=== PATIENT | female | born 1950 | race Caucasian/White ===

== ENCOUNTER 2016-08-21 17:52 | Inpatient (IN) | payer OTHER ==
[~2016-08-21] VITALS: Ht 157.5 cm; Wt 108.2 kg
[2016-08-21 20:29] LABS: CHLORIDE 99 mEq/L (99-109); POTASSIUM 3.3 mEq/L (3.7-5.4); SODIUM 134 mEq/L (136-147)
[2016-08-21 20:31] LABS: GLUCOSE 111 mg/dL (70-99)
[2016-08-21 20:32] LABS: ANION GAP 13 MEQ/L (2-14)
[2016-08-21 20:35] LABS: GFR ESTIMATE (CALCULATED) > 59 mL/min/
[2016-08-21 20:36] LABS: UREA NITROGEN (BUN) 11 mg/dL (9-23)
[2016-08-21 20:37] LABS: HEMATOCRIT 37.1 % (36.0-46.0); MCH 20.3 PG (29.0-34.0); MCHC 29.6 G/DL (30.0-36.0); MCV 68.3 FL (83-99); NRBC (%) 0.1 /100 WBC (0-0); PLATELET COUNT 192 K/uL (156-360); RBC DIS.WIDTH-CV 19.7 % (11.8-14.6); RED BLOOD COUNT 5.43 M/uL (3.80-5.20)
[2016-08-21 20:38] LABS: INTER. NORMALIZED RATIO 1.2; PTT 32.2 (25-32)
[2016-08-21] MEDS ORDERED: NORVASC10 MG PO (21:35)
[2016-08-21] MEDS ORDERED: ASPIR 8181 M1 PO (21:36)
[2016-08-21] MEDS ORDERED: CHILDREN'S MOT120 M2 PO (21:37)
[2016-08-22] VITALS (7 sets, daily range): BP systolic 114–140; BP diastolic 66–77
[2016-08-22 07:32] LABS: ALKALINE PHOSPHATASE 55 IU/L (3-129); ANION GAP 12 MEQ/L (2-14); CHLORIDE 100 MEQ/L (99-109); GFR ESTIMATE (CALCULATED) > 59 mL/min/; HEMATOCRIT 31.2 % (36.0-46.0); IRON 12 MCG/DL (35-150); MCH 19.9 PG (29.0-34.0); MCHC 28.8 G/DL (30.0-36.0); POTASSIUM 3.2 MEQ/L (3.7-5.4); RBC DIS.WIDTH-CV 19.5 % (11.8-14.6); RBC DIS.WIDTH-SD 47.8 % (39-53); RED BLOOD COUNT 4.52 M/uL (3.80-5.20); SAMPLE HEMOLYSIS CHECK 0; SAMPLE ICTERIC CHECK 0; SAMPLE LIPEMIA CHECK 0; SODIUM 137 MEQ/L (136-147); TOTAL BILIRUBIN 0.8 MG/DL (0.0-1.0); UREA NITROGEN (BUN) 12 mg/dL (9-23); WHITE BLOOD COUNT 13.7 K/uL (4.1-10.2)
[2016-08-22 07:33] LABS: GLUCOSE 78 mg/dL (70-99)
[2016-08-22 07:41] LABS: ABS NEUTROPHIL COUNT 11.9; ANISOCYTOSIS 1+; ATYPICAL LYMPHOCYTE 0.9 %; BAND NEUTROPHILS 0.9 % (0-8.0); EOSINOPHIL ABS CT 0; MICROCYTOSIS 1+; PLAT.SUFFICIENCY ADEQUATE; PLATELET COUNT 140 K/uL (156-360); POIKILOCYTOSIS 1+; SEG.NEUTROPHILS 85.8 % (46.0-76.0)
[2016-08-22 07:48] LABS: FERRITIN 60 NG/ML (10-291)
[2016-08-23 02:57] VITALS: BP 124/66
[2016-08-23 08:03] LABS: ANION GAP 11 MEQ/L (2-14); CHLORIDE 101 MEQ/L (99-109); GFR ESTIMATE (CALCULATED) > 59 mL/min/; GLUCOSE 84 mg/dL (70-99); POTASSIUM 3.2 MEQ/L (3.7-5.4); SAMPLE HEMOLYSIS CHECK 0; SAMPLE ICTERIC CHECK 0; SAMPLE LIPEMIA CHECK 0; SODIUM 138 MEQ/L (136-147); UREA NITROGEN (BUN) 12 mg/dL (9-23)
[2016-08-23 08:10] LABS: HEMATOCRIT 32.7 % (36.0-46.0); MCH 20.3 PG (29.0-34.0); MCHC 29.4 G/DL (30.0-36.0); MCV 69.3 FL (83-99); PLATELET COUNT 147 K/uL (156-360); RBC DIS.WIDTH-CV 19.3 % (11.8-14.6); RBC DIS.WIDTH-SD 47.4 % (39-53); RED BLOOD COUNT 4.72 M/uL (3.80-5.20); WHITE BLOOD COUNT 10.5 K/uL (4.1-10.2)
[2016-08-23 08:18] LABS: ANISOCYTOSIS 1+; BAND NEUTROPHILS 0.9 % (0-8.0); BURR CELLS 1+; EOSINOPHIL ABS CT 0.4; EOSINOPHILS 3.5 % (0-5.0); HYPOCHROMASIA 1+; INSTRUMENT ABS NEUTROPHIL CT 7.4 K/uL; LYMPHOCYTES 8.8 % (15.0-45.0); METAMYELOCYTES 0.9 %; MICROCYTOSIS 2+; OVALOCYTES 1+; PLAT.SUFFICIENCY ADEQUATE; POIKILOCYTOSIS 1+
[2016-08-23 08:41] VITALS: BP 117/61
[2016-08-23 12:31] VITALS: BP 131/71
[2016-08-23 16:52] VITALS: BP 122/65
[2016-08-23 19:25] VITALS: BP 141/67
[2016-08-23 23:12] VITALS: BP 126/59
[2016-08-24 02:44] VITALS: BP 141/66
[2016-08-24 07:34] VITALS: BP 140/77
[2016-08-24 09:28] LABS: CHLORIDE 104 mEq/L (99-109); POTASSIUM 3.2 mEq/L (3.7-5.4); SODIUM 139 mEq/L (136-147)
[2016-08-24 09:31] LABS: ANION GAP 9 MEQ/L (2-14)
[2016-08-24 09:33] LABS: HEMATOCRIT 34.4 % (36.0-46.0); MCH 20.1 PG (29.0-34.0); MCHC 29.1 G/DL (30.0-36.0); MCV 69.1 FL (83-99); RBC DIS.WIDTH-CV 19.5 % (11.8-14.6); RBC DIS.WIDTH-SD 47.4 % (39-53); RED BLOOD COUNT 4.98 M/uL (3.80-5.20)
[2016-08-24 09:34] LABS: GFR ESTIMATE (CALCULATED) > 59 mL/min/; WHITE BLOOD COUNT 4.5 K/uL (4.1-10.2)
[2016-08-24 09:35] LABS: UREA NITROGEN (BUN) 7 mg/dL (9-23)
[2016-08-24 09:42] LABS: GLUCOSE 152 mg/dL (70-99)
[2016-08-24 10:41] LABS: ABS NEUTROPHIL COUNT 3.9; ANISOCYTOSIS 2+; ATYPICAL LYMPHOCYTE 0.9 %; BAND NEUTROPHILS 1.8 % (0-8.0); EOSINOPHIL ABS CT 0; GIANT PLATELETS 2+; HYPOCHROMASIA 2+; LYMPHOCYTES 5.5 % (15.0-45.0); METAMYELOCYTES 2.7 %; MICROCYTOSIS 2+; MYELOCYTES 0.9 %; OVALOCYTES 2+; PLAT.SUFFICIENCY ADEQUATE; PLATELET COUNT 148 K/uL (156-360); POIKILOCYTOSIS 2+; SEG.NEUTROPHILS 85.5 % (46.0-76.0)
[2016-08-24 11:08] VITALS: BP 138/81
[2016-08-24 16:00] VITALS: BP 135/67
[2016-08-24 21:00] VITALS: BP 132/77
[2016-08-24 23:58] VITALS: BP 142/77
[2016-08-25 09:09] VITALS: BP 144/86
[2016-08-25 09:40] LABS: HEMATOCRIT 35.4 % (36.0-46.0); MCH 20.2 PG (29.0-34.0); MCHC 28.8 G/DL (30.0-36.0); MCV 70.1 FL (83-99); PLATELET COUNT 157 K/uL (156-360); RBC DIS.WIDTH-CV 20.1 % (11.8-14.6); RBC DIS.WIDTH-SD 49.2 % (39-53); RED BLOOD COUNT 5.05 M/uL (3.80-5.20); WHITE BLOOD COUNT 3.2 K/uL (4.1-10.2)
[2016-08-25 10:03] LABS: ANION GAP 9 MEQ/L (2-14); CHLORIDE 104 MEQ/L (99-109); GFR ESTIMATE (CALCULATED) > 59 mL/min/; GLUCOSE 158 mg/dL (70-99); POTASSIUM 3.3 MEQ/L (3.7-5.4); SAMPLE HEMOLYSIS CHECK 0; SAMPLE ICTERIC CHECK 0; SAMPLE LIPEMIA CHECK 0; SODIUM 139 MEQ/L (136-147); UREA NITROGEN (BUN) 5 mg/dL (9-23)
[2016-08-25 10:14] LABS: ABS NEUTROPHIL COUNT 2.3; ANISOCYTOSIS 2+; ATYPICAL LYMPHOCYTE 4.4 %; BAND NEUTROPHILS 1.8 % (0-8.0); BURR CELLS 1+; EOSINOPHIL ABS CT 0.1; EOSINOPHILS 3.5 % (0-5.0); INSTRUMENT ABS NEUTROPHIL CT 1.7 K/uL; METAMYELOCYTES 0.9 %; MICROCYTOSIS 2+; OVALOCYTES 1+; PLAT.SUFFICIENCY ADEQUATE; POIKILOCYTOSIS 2+; POLYCHROMASIA 1+; SEG.NEUTROPHILS 69.3 % (46.0-76.0)
[2016-08-25 10:47] VITALS: BP 134/86
[2016-08-25 16:00] VITALS: BP 149/76
[2016-08-25 23:43] VITALS: BP 133/88
[2016-08-26 07:13] LABS: ANION GAP 9 MEQ/L (2-14); CHLORIDE 105 MEQ/L (99-109); GFR ESTIMATE (CALCULATED) > 59 mL/min/; POTASSIUM 3.7 MEQ/L (3.7-5.4); SAMPLE HEMOLYSIS CHECK 0; SAMPLE ICTERIC CHECK 0; SAMPLE LIPEMIA CHECK 0; SODIUM 140 MEQ/L (136-147); UREA NITROGEN (BUN) 4 mg/dL (9-23)
[2016-08-26 07:15] LABS: GLUCOSE 90 mg/dL (70-99)
[2016-08-26 08:00] VITALS: BP 167/86
[2016-08-26 16:00] VITALS: BP 142/82
[2016-08-26 23:56] VITALS: BP 145/85
[2016-08-27 04:12] VITALS: BP 145/85
[2016-08-27 06:51] VITALS: BP 136/74
[2016-08-27] MEDS ORDERED: CIPRO500 MG/5 M PO (11:58)
[2016-08-27] MEDS ORDERED: FLAGYL500 MG PO (11:58)
== END 2016-08-27 12:52 | disposition home or self-care (01) | DRG 392 ==
LOC: EME 17:52 → 2EAST 23:00 → EDOF 23:00 → 2EAST 08-22 00:05
PROVIDERS: Emergency Medicine; Physician Assistant Surgical; Surgery
PROC: 0W9F30Z Drainage of Abdominal Wall with Drainage Device, Percutaneous Approach (ICD-10-PCS; principal; 2016-08-22)
DX: K57.20 Diverticulitis of large intestine with perforation and abscess without bleeding (principal); E87.1 Hypo-osmolality and hyponatremia; D50.9 Iron deficiency anemia, unspecified; E87.6 Hypokalemia; I10 Essential (primary) hypertension; E66.9 Obesity, unspecified; Z68.41 Body mass index [BMI] 40.0-44.9, adult
CPT/HCPCS: 36415; 49406; 71010; 74020; 74177; 80048; 80053; 82150; 82728; 83540; 83605; 83690; 83735; 84100; 84466; 85025; 85027; 85610; 85730; 86850; 86900; 86901; 87070; 87075; 87076; 87086; 87185; 87205; 99281; 99285; C1769; J0744; J1170; J1885; J2405; J3010; J7030; J7050; J7120; S0030

== ENCOUNTER → 2016-08-21 | Outpatient (CLI) | payer OTHER ==
[~2016-08-21] MED LIST: ASPIR 8181 M1 PO; CHILDREN'S MOT120 M2 PO; NORVASC10 MG PO
== END | disposition home or self-care (01) ==
LOC: RAD 14:58
DX: K57.80 Diverticulitis of intestine, part unspecified, with perforation and abscess without bleeding (principal); K80.20 Calculus of gallbladder without cholecystitis without obstruction; D25.9 Leiomyoma of uterus, unspecified
CPT/HCPCS: 74020; 74177; J2405; J3010

== ENCOUNTER → 2016-10-23 | Outpatient (CLI) | payer OTHER ==
[~2016-10-23] MED LIST changes: +CIPRO500 MG/5 M PO; +FLAGYL500 MG PO; +INDAPAMIDE2.5 MG PO
== END | disposition home or self-care (01) ==
LOC: RAD 14:29
DX: K63.89 Other specified diseases of intestine (principal); K52.9 Noninfective gastroenteritis and colitis, unspecified; K80.20 Calculus of gallbladder without cholecystitis without obstruction; N28.1 Cyst of kidney, acquired; I70.90 Unspecified atherosclerosis; D25.9 Leiomyoma of uterus, unspecified; G31.89 Other specified degenerative diseases of nervous system; R93.5 Abnormal findings on diagnostic imaging of other abdominal regions, including retroperitoneum
CPT/HCPCS: 74177; J3010

== ENCOUNTER → 2016-10-25 | Outpatient (CLI) | payer OTHER | END | disposition home or self-care (01) | LOC: OPR 12:35 → EDSTATUS 13:00 → OPR 13:00 | DX: K57.80 Diverticulitis of intestine, part unspecified, with perforation and abscess without bleeding (principal); I10 Essential (primary) hypertension; R63.4 Abnormal weight loss; D50.9 Iron deficiency anemia, unspecified; J45.909 Unspecified asthma, uncomplicated; E66.01 Morbid (severe) obesity due to excess calories; Z68.41 Body mass index [BMI] 40.0-44.9, adult | CPT/HCPCS: 10030; 87070; 87075; 87076; 87077; 87147; 87185; 87186; 87205; C1729; C1769 ==

== ENCOUNTER 2016-10-28 11:17 | Inpatient (IN) | payer OTHER ==
[~2016-10-28] VITALS: Ht 157.5 cm; Wt 106.0 kg
[2016-10-28 13:13] LABS: CHLORIDE 97 mEq/L (99-109); POTASSIUM 2.8 mEq/L (3.7-5.4); SODIUM 133 mEq/L (136-147)
[2016-10-28 13:15] LABS: GLUCOSE 120 mg/dL (70-99)
[2016-10-28 13:16] LABS: ANION GAP 11 MEQ/L (2-14)
[2016-10-28 13:17] LABS: HEMATOCRIT 36.1 % (36.0-46.0); MCH 21.4 PG (29.0-34.0); MCHC 29.6 G/DL (30.0-36.0); MCV 72.1 FL (83-99); PLATELET COUNT 182 K/uL (156-360); RBC DIS.WIDTH-CV 19.9 % (11.8-14.6); RBC DIS.WIDTH-SD 49.6 % (39-53); RED BLOOD COUNT 5.01 M/uL (3.80-5.20)
[2016-10-28 13:19] LABS: GFR ESTIMATE (CALCULATED) > 59 mL/min/
[2016-10-28 13:20] LABS: UREA NITROGEN (BUN) 8 mg/dL (9-23)
[2016-10-28 14:29] LABS: ABS NEUTROPHIL COUNT 17.2; ANISOCYTOSIS 1+; EOSINOPHIL ABS CT 0; LYMPHOCYTES 3.5 % (15.0-45.0); MICROCYTOSIS 1+; PLAT.SUFFICIENCY ADEQUATE; POIKILOCYTOSIS 1+; SEG.NEUTROPHILS 88.6 % (46.0-76.0)
[2016-10-28 22:30] VITALS: BP 126/70
[2016-10-28 22:32] VITALS: BP 126/70
[2016-10-28 23:00] VITALS: BP 140/71
[2016-10-29] VITALS (19 sets, daily range): BP systolic 98–187; BP diastolic 50–97
[2016-10-29 00:52] LABS: METH RESISTANT S AUREUS PCR NEGATIVE (NEGATIVE)
[2016-10-29 00:53] LABS: PROBE CHECK PASS; SPECIMEN PROCESSING CONTROL PASS
[2016-10-29 05:46] LABS: HEMATOCRIT 33.3 % (36.0-46.0); MCH 22.2 PG (29.0-34.0); MCHC 30.3 G/DL (30.0-36.0); MCV 73.2 FL (83-99); PLATELET COUNT 163 K/uL (156-360); RBC DIS.WIDTH-CV 19.8 % (11.8-14.6); RBC DIS.WIDTH-SD 50.7 % (39-53); RED BLOOD COUNT 4.55 M/uL (3.80-5.20); WHITE BLOOD COUNT 20.2 K/uL (4.1-10.2)
[2016-10-29 06:17] LABS: ANION GAP 11 MEQ/L (2-14); CHLORIDE 102 MEQ/L (99-109); GFR ESTIMATE (CALCULATED) > 59 mL/min/; GLUCOSE 134 mg/dL (70-99); POTASSIUM 3.2 MEQ/L (3.7-5.4); SAMPLE HEMOLYSIS CHECK 0; SAMPLE ICTERIC CHECK 0; SAMPLE LIPEMIA CHECK 0; UREA NITROGEN (BUN) 7 mg/dL (9-23)
[2016-10-29 06:26] LABS: SODIUM 140 MEQ/L (136-147)
[2016-10-30] VITALS: BP 115/58
[2016-10-30 03:33] VITALS: BP 116/65
[2016-10-30 06:56] LABS: HEMATOCRIT 35.2 % (36.0-46.0); MCH 21.4 PG (29.0-34.0); MCV 73.9 FL (83-99); PLATELET COUNT 190 K/uL (156-360); RBC DIS.WIDTH-SD 51.8 % (39-53); RED BLOOD COUNT 4.76 M/uL (3.80-5.20); WHITE BLOOD COUNT 14.9 K/uL (4.1-10.2)
[2016-10-30 07:21] LABS: ANION GAP 9 MEQ/L (2-14); CHLORIDE 103 MEQ/L (99-109); GFR ESTIMATE (CALCULATED) > 59 mL/min/; POTASSIUM 3.3 MEQ/L (3.7-5.4); SAMPLE HEMOLYSIS CHECK 0; SAMPLE ICTERIC CHECK 0; SAMPLE LIPEMIA CHECK 0; SODIUM 140 MEQ/L (136-147); UREA NITROGEN (BUN) 9 mg/dL (9-23)
[2016-10-30 07:22] LABS: GLUCOSE 76 mg/dL (70-99)
[2016-10-30 08:53] VITALS: BP 135/67
[2016-10-30 12:41] VITALS: BP 121/83
[2016-10-30 16:58] VITALS: BP 141/78
[2016-10-30 19:30] VITALS: BP 141/72
[2016-10-31] VITALS: BP 139/67
[2016-10-31 05:36] VITALS: BP 128/67
[2016-10-31 08:34] VITALS: BP 169/79
[2016-10-31 11:43] VITALS: BP 130/78
[2016-10-31 17:02] VITALS: BP 137/80
[2016-10-31 19:26] VITALS: BP 132/73
[2016-11-01] VITALS: BP 139/76
[2016-11-01 05:23] VITALS: BP 142/78
[2016-11-01 06:35] LABS: MCH 21.6 PG (29.0-34.0); MCHC 29.4 G/DL (30.0-36.0); MCV 73.4 FL (83-99); RBC DIS.WIDTH-CV 20.3 % (11.8-14.6); RBC DIS.WIDTH-SD 52.3 % (39-53); RED BLOOD COUNT 4.77 M/uL (3.80-5.20)
[2016-11-01 07:21] LABS: PLAT.SUFFICIENCY ADEQUATE; PLATELET COUNT 179 K/uL (156-360)
[2016-11-01 08:00] VITALS: BP 148/82
[2016-11-01 11:36] VITALS: BP 136/75
[2016-11-01 15:15] VITALS: BP 134/77
[2016-11-01 19:48] VITALS: BP 135/77
[2016-11-02 00:30] VITALS: BP 132/83
[2016-11-02 05:03] VITALS: BP 132/72
[2016-11-02 05:11] LABS: POTASSIUM 3.2 mEq/L (3.7-5.4); SODIUM 143 mEq/L (136-147)
[2016-11-02 05:12] LABS: CHLORIDE 110 mEq/L (99-109)
[2016-11-02 05:14] LABS: ANION GAP 9 MEQ/L (2-14); GLUCOSE 99 mg/dL (70-99)
[2016-11-02 05:17] LABS: GFR ESTIMATE (CALCULATED) > 59 mL/min/
[2016-11-02 05:18] LABS: UREA NITROGEN (BUN) 3 mg/dL (9-23)
[2016-11-02 07:25] VITALS: BP 128/81
[2016-11-02 12:25] VITALS: BP 112/67
[2016-11-02 21:57] VITALS: BP 167/93
[2016-11-03 01:02] VITALS: BP 143/80
[2016-11-03 04:08] VITALS: BP 141/88
[2016-11-03 08:00] VITALS: BP 151/72
[2016-11-03] MEDS ORDERED: ENDOCET 5-3251 EACH PO (09:53)
[2016-11-03] MEDS ORDERED: ONDANSETRON4 MG/2 ML IV (09:54)
[2016-11-03] MEDS ORDERED: TYLENOL REGULA325 MG PO (09:54)
[2016-11-03] MEDS ORDERED: FAMOTIDINE20 MG PO (09:54)
[2016-11-03 10:38] LABS: HEMATOCRIT 33.5 % (36.0-46.0); MCHC 29.6 G/DL (30.0-36.0); MCV 74.6 FL (83-99); RBC DIS.WIDTH-CV 20.8 % (11.8-14.6); RBC DIS.WIDTH-SD 53.9 % (39-53); RED BLOOD COUNT 4.49 M/uL (3.80-5.20); WHITE BLOOD COUNT 5.7 K/uL (4.1-10.2)
[2016-11-03 10:49] LABS: ANION GAP 8 MEQ/L (2-14); CHLORIDE 107 MEQ/L (99-109); GFR ESTIMATE (CALCULATED) > 59 mL/min/; POTASSIUM 3.2 MEQ/L (3.7-5.4); SAMPLE HEMOLYSIS CHECK 0; SAMPLE ICTERIC CHECK 0; SAMPLE LIPEMIA CHECK 0; SODIUM 140 MEQ/L (136-147); UREA NITROGEN (BUN) 4 mg/dL (9-23)
[2016-11-03 10:59] LABS: GLUCOSE 186 mg/dL (70-99)
[2016-11-03 12:32] VITALS: BP 131/76
[2016-11-03 14:22] LABS: PLATELET COUNT 218 K/uL (156-360)
== END 2016-11-03 13:42 | DRG 571 ==
LOC: EME → EDBD 11:17 → EDOF 15:20 → 4EAST 15:20 → EDOF 19:46 → 4WEST 22:22 → 4EAST 10-30 03:20
PROVIDERS: Emergency Medicine; Physician Assistant Surgical; Surgery
DX: L03.311 Cellulitis of abdominal wall (principal); K63.2 Fistula of intestine; K57.20 Diverticulitis of large intestine with perforation and abscess without bleeding; Z68.41 Body mass index [BMI] 40.0-44.9, adult; J45.909 Unspecified asthma, uncomplicated; I10 Essential (primary) hypertension; E66.01 Morbid (severe) obesity due to excess calories; L02.211 Cutaneous abscess of abdominal wall; B95.61 Methicillin susceptible Staphylococcus aureus infection as the cause of diseases classified elsewhere; Z88.5 Allergy status to narcotic agent
CPT/HCPCS: 10030; 74177; 80048; 82040; 85025; 85027; 87070; 87075; 87076; 87077; 87147; 87185; 87186; 87205; 87641; 94799; 97530 GP; 99281; 99284; A6260; C1729; C1769; J0330; J1100; J1644; J2270; J2405; J2543; J3010; J3480; J7030; J7050; J7120

== ENCOUNTER 2016-11-12 17:24 | Inpatient (IN) | payer OTHER ==
[~2016-11-12] VITALS: Ht 157.5 cm; Wt 100.3 kg
[~2016-11-12 17:24] MED LIST changes: +ENDOCET 5-3251 EACH PO; +FAMOTIDINE20 MG PO; +ONDANSETRON4 MG/2 ML IV; +TYLENOL REGULA325 MG PO
[2016-11-12 18:52] LABS: BASOPHIL COUNT 0.1 K/uL (0-0.1); EOSINOPHIL (%) 0.1 % (0-5); HEMATOCRIT 33.4 % (36.0-46.0); IMMATURE GRANULOCYTE (%) 1.1 % (0.0-0.7); IMMATURE GRANULOCYTE COUNT 0.2 K/uL; INSTRUMENT ABS NEUTROPHIL CT 14.9 K/uL; LYMPHOCYTE COUNT 1.7 K/uL (1.0-2.8); MCH 21.7 PG (29.0-34.0); MCHC 30.2 G/DL (30.0-36.0); MCV 71.8 FL (83-99); MEAN PLAT.VOLUME 11.9 uM^3 (9.5-12.4); MONOCYTE (%) 6.2 % (3-12); MONOCYTE COUNT 1.1 K/uL (0-0.8); NEUTROPHIL (%) 82.8 % (45-76); NEUTROPHIL COUNT 14.9 K/uL (1.8-6.4); PLATELET COUNT 209 K/uL (156-360); RBC DIS.WIDTH-CV 20.8 % (11.8-14.6); RBC DIS.WIDTH-SD 51.9 % (39-53); RED BLOOD COUNT 4.65 M/uL (3.80-5.20); WHITE BLOOD COUNT 17.9 K/uL (4.1-10.2)
[2016-11-12 18:54] LABS: CHLORIDE 96 mEq/L (99-109); POTASSIUM 3.4 mEq/L (3.7-5.4); SODIUM 134 mEq/L (136-147)
[2016-11-12 18:56] LABS: GLUCOSE 134 mg/dL (70-99)
[2016-11-12 18:57] LABS: ANION GAP 11 MEQ/L (2-14)
[2016-11-12 18:58] LABS: TOTAL BILIRUBIN 0.8 mg/dL (0.0-1.0)
[2016-11-12 18:59] LABS: ALKALINE PHOSPHATASE 98 IU/L (3-129)
[2016-11-12 19:00] LABS: GFR ESTIMATE (CALCULATED) > 59 mL/min/
[2016-11-12 19:01] LABS: UREA NITROGEN (BUN) 11 mg/dL (9-23)
[2016-11-12] MEDS ORDERED: DULCOLAX10 MG PR (20:49)
[2016-11-12] MEDS ORDERED: MILK OF MAGN PO (20:50)
[2016-11-12] MEDS ORDERED: FEOSOL325 MG PO (20:51)
[2016-11-12] MEDS ORDERED: FLORASTOR250 MG PO (20:52)
[2016-11-12] MEDS ORDERED: CHILDREN'S160 MG/23 PO (20:55)
[2016-11-12] MEDS ORDERED: POTASSIUM CHLO20 MEQ PO (20:56)
[2016-11-12] MEDS ORDERED: FAMOTIDINE20 MG PO (20:58)
[2016-11-12] MEDS ORDERED: OXYCODONE H5 MG/5 ML PO (21:00)
[2016-11-12] MEDS ORDERED: MIRALAX255 GM PO (21:01)
[2016-11-12] MEDS ORDERED: ZOFRAN4 MG PO (21:02)
[2016-11-12 23:35] LABS: INTER. NORMALIZED RATIO 1.2; PROTHROMBIN TIME 11.9 (9.2-11.2); PTT 31.8 (25-32)
[2016-11-12 23:51] VITALS: BP 133/66
[2016-11-13 01:11] LABS: POINT-OF-CARE METER ID UU14162508
[2016-11-13 04:28] VITALS: BP 119/58
[2016-11-13 06:30] LABS: POINT-OF-CARE METER ID UU14162508
[2016-11-13 07:07] LABS: EOSINOPHIL (%) 0.3 % (0-5); HEMATOCRIT 28.7 % (36.0-46.0); IMMATURE GRANULOCYTE (%) 1.4 % (0.0-0.7); IMMATURE GRANULOCYTE COUNT 0.2 K/uL; INSTRUMENT ABS NEUTROPHIL CT 9.3 K/uL; LYMPHOCYTE COUNT 1.3 K/uL (1.0-2.8); MCH 22.8 PG (29.0-34.0); MCV 73.4 FL (83-99); MONOCYTE (%) 7.4 % (3-12); MONOCYTE COUNT 0.9 K/uL (0-0.8); NEUTROPHIL (%) 79.5 % (45-76); NEUTROPHIL COUNT 9.3 K/uL (1.8-6.4); PLATELET COUNT 161 K/uL (156-360); RBC DIS.WIDTH-CV 20.8 % (11.8-14.6); RBC DIS.WIDTH-SD 53.4 % (39-53); RED BLOOD COUNT 3.91 M/uL (3.80-5.20); WHITE BLOOD COUNT 11.8 K/uL (4.1-10.2)
[2016-11-13 07:18] LABS: ANION GAP 8 MEQ/L (2-14); CHLORIDE 102 MEQ/L (99-109); GFR ESTIMATE (CALCULATED) > 59 mL/min/; GLUCOSE 109 mg/dL (70-99); SAMPLE HEMOLYSIS CHECK 0; SAMPLE ICTERIC CHECK 0; SAMPLE LIPEMIA CHECK 0; SODIUM 138 MEQ/L (136-147); UREA NITROGEN (BUN) 9 mg/dL (9-23)
[2016-11-13 07:35] VITALS: BP 132/68
[2016-11-13 12:15] VITALS: BP 130/66
[2016-11-13 15:30] VITALS: BP 118/66
[2016-11-13 17:45] LABS: POINT-OF-CARE METER ID UU14162508
[2016-11-13 19:19] VITALS: BP 133/67
[2016-11-13 23:39] VITALS: BP 139/66
[2016-11-14 04:28] VITALS: BP 128/65
[2016-11-14 07:42] VITALS: BP 121/68
[2016-11-14 12:05] VITALS: BP 134/92
[2016-11-14 13:56] LABS: ANION GAP 13 MEQ/L (2-14); CHLORIDE 102 MEQ/L (99-109); POTASSIUM 2.8 MEQ/L (3.7-5.4); SAMPLE HEMOLYSIS CHECK 0; SAMPLE ICTERIC CHECK 0; SAMPLE LIPEMIA CHECK 0; SODIUM 138 MEQ/L (136-147)
[2016-11-14 14:00] LABS: EOSINOPHIL (%) 1.7 % (0-5); EOSINOPHIL COUNT 0.1 K/uL (0-0.3); HEMATOCRIT 33.1 % (36.0-46.0); IMMATURE GRANULOCYTE (%) 1.3 % (0.0-0.7); IMMATURE GRANULOCYTE COUNT 0.1 K/uL; INSTRUMENT ABS NEUTROPHIL CT 4.3 K/uL; LYMPHOCYTE COUNT 1.2 K/uL (1.0-2.8); MCH 22.4 PG (29.0-34.0); MCHC 30.2 G/DL (30.0-36.0); MCV 74.2 FL (83-99); MONOCYTE COUNT 0.4 K/uL (0-0.8); NEUTROPHIL COUNT 4.3 K/uL (1.8-6.4); PLATELET COUNT 163 K/uL (156-360); RBC DIS.WIDTH-CV 20.6 % (11.8-14.6); RED BLOOD COUNT 4.46 M/uL (3.80-5.20)
[2016-11-14 14:01] LABS: GFR ESTIMATE (CALCULATED) > 59 mL/min/; GLUCOSE 121 mg/dL (70-99); UREA NITROGEN (BUN) 8 mg/dL (9-23)
[2016-11-14 15:16] VITALS: BP 117/67
[2016-11-14 16:21] LABS: MAGNESIUM 2.2 mg/dl (1.3-2.7)
[2016-11-14 20:00] VITALS: BP 129/70
[2016-11-15 01:07] VITALS: BP 127/69
[2016-11-15 08:00] VITALS: BP 135/86
[2016-11-15 08:21] LABS: EOSINOPHIL COUNT 0.1 K/uL (0-0.3); HEMATOCRIT 32.5 % (36.0-46.0); IMMATURE GRANULOCYTE (%) 1.7 % (0.0-0.7); IMMATURE GRANULOCYTE COUNT 0.1 K/uL; INSTRUMENT ABS NEUTROPHIL CT 2.3 K/uL; LYMPHOCYTE COUNT 1.2 K/uL (1.0-2.8); MCH 22.4 PG (29.0-34.0); MCHC 30.2 G/DL (30.0-36.0); MCV 74.4 FL (83-99); MONOCYTE (%) 7.5 % (3-12); MONOCYTE COUNT 0.3 K/uL (0-0.8); NEUTROPHIL (%) 57.5 % (45-76); NEUTROPHIL COUNT 2.3 K/uL (1.8-6.4); PLATELET COUNT 175 K/uL (156-360); RBC DIS.WIDTH-CV 20.7 % (11.8-14.6); RBC DIS.WIDTH-SD 54.3 % (39-53); RED BLOOD COUNT 4.37 M/uL (3.80-5.20)
[2016-11-15 08:32] LABS: ANION GAP 11 MEQ/L (2-14); CHLORIDE 107 MEQ/L (99-109); GFR ESTIMATE (CALCULATED) > 59 mL/min/; GLUCOSE 88 mg/dL (70-99); POTASSIUM 3.7 MEQ/L (3.7-5.4); SAMPLE HEMOLYSIS CHECK 0; SAMPLE ICTERIC CHECK 0; SAMPLE LIPEMIA CHECK 0; SODIUM 142 MEQ/L (136-147); UREA NITROGEN (BUN) 6 mg/dL (9-23)
[2016-11-15 11:12] VITALS: BP 127/84
[2016-11-15 15:35] VITALS: BP 128/84
[2016-11-16] VITALS (7 sets, daily range): BP systolic 122–139; BP diastolic 67–73
[2016-11-16 08:04] LABS: EOSINOPHIL (%) 3.2 % (0-5); EOSINOPHIL COUNT 0.1 K/uL (0-0.3); HEMATOCRIT 32.9 % (36.0-46.0); IMMATURE GRANULOCYTE (%) 2.2 % (0.0-0.7); IMMATURE GRANULOCYTE COUNT 0.1 K/uL; LYMPHOCYTE COUNT 1.1 K/uL (1.0-2.8); MCH 22.1 PG (29.0-34.0); MCHC 29.8 G/DL (30.0-36.0); MCV 74.1 FL (83-99); MONOCYTE (%) 8.9 % (3-12); MONOCYTE COUNT 0.3 K/uL (0-0.8); NEUTROPHIL (%) 54.6 % (45-76); PLATELET COUNT 175 K/uL (156-360); RBC DIS.WIDTH-CV 20.5 % (11.8-14.6); RBC DIS.WIDTH-SD 53.2 % (39-53); RED BLOOD COUNT 4.44 M/uL (3.80-5.20); WHITE BLOOD COUNT 3.7 K/uL (4.1-10.2)
[2016-11-16 08:23] LABS: ANION GAP 11 MEQ/L (2-14); CHLORIDE 105 MEQ/L (99-109); GFR ESTIMATE (CALCULATED) > 59 mL/min/; GLUCOSE 91 mg/dL (70-99); MAGNESIUM 2.1 mg/dl (1.3-2.7); POTASSIUM 3.3 MEQ/L (3.7-5.4); SAMPLE HEMOLYSIS CHECK 0; SAMPLE ICTERIC CHECK 0; SAMPLE LIPEMIA CHECK 0; SODIUM 142 MEQ/L (136-147); UREA NITROGEN (BUN) 5 mg/dL (9-23)
[2016-11-17 03:51] VITALS: BP 138/75
[2016-11-17 06:23] VITALS: BP 142/78
[2016-11-17 06:47] LABS: ANION GAP 10 MEQ/L (2-14); CHLORIDE 107 MEQ/L (99-109); GFR ESTIMATE (CALCULATED) > 59 mL/min/; GLUCOSE 87 mg/dL (70-99); MAGNESIUM 2.2 mg/dl (1.3-2.7); POTASSIUM 4.2 MEQ/L (3.7-5.4); SAMPLE HEMOLYSIS CHECK 0; SAMPLE ICTERIC CHECK 0; SAMPLE LIPEMIA CHECK 0; SODIUM 142 MEQ/L (136-147); UREA NITROGEN (BUN) 5 mg/dL (9-23)
[2016-11-17 11:35] VITALS: BP 130/71
== END 2016-11-17 13:27 | DRG 872 ==
LOC: EME 17:24 → 2EAST 22:22 → EDOF 22:22 → 2EAST 23:41
PROVIDERS: Emergency Medicine; Hospitalist; Internal Medicine
DX: A41.9 Sepsis, unspecified organism (principal); T81.30XA Disruption of wound, unspecified, initial encounter; E87.1 Hypo-osmolality and hyponatremia; E66.01 Morbid (severe) obesity due to excess calories; N28.1 Cyst of kidney, acquired; K57.20 Diverticulitis of large intestine with perforation and abscess without bleeding; Z68.41 Body mass index [BMI] 40.0-44.9, adult; I10 Essential (primary) hypertension; R73.03 Prediabetes; E87.6 Hypokalemia; J45.909 Unspecified asthma, uncomplicated; D64.9 Anemia, unspecified; K80.20 Calculus of gallbladder without cholecystitis without obstruction; Z93.3 Colostomy status; Z83.3 Family history of diabetes mellitus
CPT/HCPCS: 71010; 72192; 74177; 80048; 80053; 81003; 82948; 83605; 83735; 85025; 85025 91; 85610; 85730; 86900; 86901; 87040; 93005; 99281; 99285; A6260; J1450; J1644; J2543; J3010; J3260; J3370; J3480; J7030; J7050

== ENCOUNTER 2016-12-01 10:06 | Inpatient (IN) | payer OTHER ==
[~2016-12-01] VITALS: Ht 157.5 cm; Wt 103.0 kg
[~2016-12-01 10:06] MED LIST changes: +CHILDREN'S160 MG/23 PO; +DULCOLAX10 MG PR; +FEOSOL325 MG PO; +FLORASTOR250 MG PO; +MILK OF MAGN PO; +MIRALAX255 GM PO; +OXYCODONE H5 MG/5 ML PO; +POTASSIUM CHLO20 MEQ PO; +ZOFRAN4 MG PO
[2016-12-01 12:33] LABS: HEMATOCRIT 34.9 % (36.0-46.0); MCH 22.4 PG (29.0-34.0); MCHC 29.8 G/DL (30.0-36.0); MCV 75.1 FL (83-99); MEAN PLAT.VOLUME 11.7 uM^3 (9.5-12.4); PLATELET COUNT 209 K/uL (156-360); RBC DIS.WIDTH-CV 22.3 % (11.8-14.6); RBC DIS.WIDTH-SD 58.6 % (39-53); RED BLOOD COUNT 4.65 M/uL (3.80-5.20); WHITE BLOOD COUNT 10.7 K/uL (4.1-10.2)
[2016-12-01 12:42] LABS: CHLORIDE 99 mEq/L (99-109); POTASSIUM 2.5 mEq/L (3.7-5.4); SODIUM 139 mEq/L (136-147)
[2016-12-01 12:44] LABS: GLUCOSE 88 mg/dL (70-99)
[2016-12-01 12:46] LABS: ANION GAP 15 MEQ/L (2-14); TOTAL BILIRUBIN 0.6 mg/dL (0.0-1.0)
[2016-12-01 12:48] LABS: ALKALINE PHOSPHATASE 89 IU/L (3-129); GFR ESTIMATE (CALCULATED) > 59 mL/min/
[2016-12-01 12:49] LABS: UREA NITROGEN (BUN) 10 mg/dL (9-23)
[2016-12-01 12:52] LABS: LIPASE 19 U/L (1.0-51.0)
[2016-12-01] MEDS ORDERED: KLOR-CON M2020 MEQ PO ×2 (16:01→16:05)
[2016-12-01] MEDS ORDERED: PROMETHAZINE HC25 M1 PO (16:05)
[2016-12-01 18:58] LABS: ADD MIUA? NO; BILIRUBIN NEGATIVE; BLOOD NEGATIVE; COLOR YELLOW ((YELLOW)); GLUCOSE (STRIP) NEGATIVE; KETONES 20; LEUKOCYTES NEGATIVE; NITRITE NEGATIVE; PROTEIN (STRIP) NEGATIVE; UCUL ADDED? NO; UROBILINOGEN 0.2 MG/DL (0.2-1.0)
[2016-12-01 19:45] LABS: SPECIFIC GRAVITY 1.076 (1.000-1.030)
[2016-12-02] VITALS (13 sets, daily range): BP systolic 104–140; BP diastolic 59–86
[2016-12-02 16:15] LABS: POINT-OF-CARE METER ID UU13113675
[2016-12-02 19:23] LABS: METH RESISTANT S AUREUS PCR NEGATIVE (NEGATIVE)
[2016-12-02 19:40] LABS: ANION GAP 16 MEQ/L (2-14); CHLORIDE 105 MEQ/L (99-109); GFR ESTIMATE (CALCULATED) > 59 mL/min/; MAGNESIUM 1.1 mg/dl (1.3-2.7); SAMPLE HEMOLYSIS CHECK 0; SAMPLE ICTERIC CHECK 0; SAMPLE LIPEMIA CHECK 0; SODIUM 136 MEQ/L (136-147); UREA NITROGEN (BUN) 10 mg/dL (9-23)
[2016-12-02 19:42] LABS: GLUCOSE 119 mg/dL (70-99)
[2016-12-02 19:54] LABS: PROBE CHECK PASS; SPECIMEN PROCESSING CONTROL PASS
[2016-12-02 23:33] LABS: PLATELET COUNT 246 K/uL (156-360)
[2016-12-02 23:45] LABS: HEMATOCRIT 35.6 % (36.0-46.0); MCH 22.7 PG (29.0-34.0); MCHC 29.5 G/DL (30.0-36.0); MCV 76.9 FL (83-99); RBC DIS.WIDTH-CV 22.3 % (11.8-14.6); RBC DIS.WIDTH-SD 61.3 % (39-53); RED BLOOD COUNT 4.63 M/uL (3.80-5.20); WHITE BLOOD COUNT 34.5 K/uL (4.1-10.2)
[2016-12-03] VITALS (16 sets, daily range): BP systolic 106–144; BP diastolic 56–72
[2016-12-03 00:09] LABS: INTER. NORMALIZED RATIO 1.4; PROTHROMBIN TIME 15.7 SEC (10.2-12.9)
[2016-12-03 00:12] LABS: PTT 22.5 SEC (25-37)
[2016-12-03 05:46] LABS: ANION GAP 10 MEQ/L (2-14); CHLORIDE 104 MEQ/L (99-109); GFR ESTIMATE (CALCULATED) > 59 mL/min/; GLUCOSE 130 mg/dL (70-99); MAGNESIUM 1.5 mg/dl (1.3-2.7); POTASSIUM 3.5 MEQ/L (3.7-5.4); SAMPLE HEMOLYSIS CHECK 0; SAMPLE ICTERIC CHECK 0; SAMPLE LIPEMIA CHECK 0; SODIUM 134 MEQ/L (136-147); UREA NITROGEN (BUN) 14 mg/dL (9-23)
[2016-12-03 06:23] LABS: HEMATOCRIT 28.7 % (36.0-46.0); MCH 22.5 PG (29.0-34.0); MCHC 28.9 G/DL (30.0-36.0); MCV 77.8 FL (83-99); RBC DIS.WIDTH-SD 61.5 % (39-53); WHITE BLOOD COUNT 21.5 K/uL (4.1-10.2)
[2016-12-03 06:24] LABS: RED BLOOD COUNT 3.69 M/uL (3.80-5.20)
[2016-12-03 06:27] LABS: PLAT.SUFFICIENCY ADEQUATE
[2016-12-03 06:31] LABS: PLATELET COUNT 170 K/uL (156-360)
[2016-12-04] VITALS: BP 132/78
[2016-12-04 04:00] VITALS: BP 141/68
[2016-12-04 06:00] LABS: HEMATOCRIT 27.1 % (36.0-46.0); MCH 22.4 PG (29.0-34.0); MCHC 28.4 G/DL (30.0-36.0); PLATELET COUNT 166 K/uL (156-360); RBC DIS.WIDTH-CV 22.2 % (11.8-14.6); RBC DIS.WIDTH-SD 63.1 % (39-53); RED BLOOD COUNT 3.43 M/uL (3.80-5.20); WHITE BLOOD COUNT 19.4 K/uL (4.1-10.2)
[2016-12-04 06:28] LABS: ANION GAP 8 MEQ/L (2-14); CHLORIDE 111 MEQ/L (99-109); GFR ESTIMATE (CALCULATED) > 59 mL/min/; GLUCOSE 108 mg/dL (70-99); SAMPLE HEMOLYSIS CHECK 1; SAMPLE ICTERIC CHECK 0; SAMPLE LIPEMIA CHECK 0; SODIUM 136 MEQ/L (136-147); UREA NITROGEN (BUN) 16 mg/dL (9-23)
[2016-12-04 06:32] LABS: MAGNESIUM 2.4 mg/dl (1.3-2.7); POTASSIUM 5.1 MEQ/L (3.7-5.4)
[2016-12-04 07:50] VITALS: BP 124/69
[2016-12-04 11:30] VITALS: BP 122/63
[2016-12-04 16:29] VITALS: BP 112/56
[2016-12-04 19:30] VITALS: BP 114/59
[2016-12-05] VITALS (12 sets, daily range): BP systolic 130–154; BP diastolic 60–88
[2016-12-05 05:19] LABS: SODIUM 139 mEq/L (136-147)
[2016-12-05 05:20] LABS: CHLORIDE 111 mEq/L (99-109); MAGNESIUM 2.1 mg/dL (1.3-2.7); POTASSIUM 3.8 mEq/L (3.7-5.4)
[2016-12-05 05:21] LABS: GLUCOSE 136 mg/dL (70-99)
[2016-12-05 05:23] LABS: ANION GAP 9 MEQ/L (2-14)
[2016-12-05 05:25] LABS: GFR ESTIMATE (CALCULATED) > 59 mL/min/
[2016-12-05 05:26] LABS: UREA NITROGEN (BUN) 14 mg/dL (9-23)
[2016-12-05 05:45] LABS: HEMATOCRIT 23.5 % (36.0-46.0); MCH 22.5 PG (29.0-34.0); MCHC 29.4 G/DL (30.0-36.0); MCV 76.8 FL (83-99); NRBC (%) 0.2 /100 WBC (0-0); RBC DIS.WIDTH-SD 61.1 % (39-53); RED BLOOD COUNT 3.06 M/uL (3.80-5.20); WHITE BLOOD COUNT 11.7 K/uL (4.1-10.2)
[2016-12-05 08:02] LABS: PLAT.SUFFICIENCY DECREASED
[2016-12-05 08:18] LABS: PLATELET COUNT 114 K/uL (156-360)
[2016-12-06] VITALS (7 sets, daily range): BP systolic 131–170; BP diastolic 68–93
[2016-12-06 05:12] LABS: HEMATOCRIT 31.7 % (36.0-46.0); MCH 24.4 PG (29.0-34.0); MCHC 30.9 G/DL (30.0-36.0); MCV 79.1 FL (83-99); NRBC (%) 0.2 /100 WBC (0-0); PLATELET COUNT 109 K/uL (156-360); RBC DIS.WIDTH-CV 21.9 % (11.8-14.6); RBC DIS.WIDTH-SD 62.6 % (39-53); RED BLOOD COUNT 4.01 M/uL (3.80-5.20); WHITE BLOOD COUNT 10.6 K/uL (4.1-10.2)
[2016-12-06 05:19] LABS: CHLORIDE 108 mEq/L (99-109); POTASSIUM 3.1 mEq/L (3.7-5.4); SODIUM 141 mEq/L (136-147)
[2016-12-06 05:21] LABS: GLUCOSE 134 mg/dL (70-99)
[2016-12-06 05:22] LABS: ANION GAP 8 MEQ/L (2-14)
[2016-12-06 05:24] LABS: GFR ESTIMATE (CALCULATED) > 59 mL/min/
[2016-12-06 05:25] LABS: UREA NITROGEN (BUN) 13 mg/dL (9-23)
[2016-12-06 05:30] LABS: MAGNESIUM 1.6 mg/dL (1.3-2.7)
[2016-12-07 04:20] VITALS: BP 144/86
[2016-12-07 06:15] LABS: ANION GAP 8 MEQ/L (2-14); CHLORIDE 103 MEQ/L (99-109); GFR ESTIMATE (CALCULATED) > 59 mL/min/; GLUCOSE 135 mg/dL (70-99); MAGNESIUM 1.7 mg/dl (1.3-2.7); POTASSIUM 3.5 MEQ/L (3.7-5.4); SAMPLE HEMOLYSIS CHECK 1; SAMPLE ICTERIC CHECK 0; SAMPLE LIPEMIA CHECK 0; SODIUM 139 MEQ/L (136-147); UREA NITROGEN (BUN) 13 mg/dL (9-23)
[2016-12-07 08:30] VITALS: BP 135/76
[2016-12-07 12:05] VITALS: BP 134/74
[2016-12-07 16:47] VITALS: BP 135/91
[2016-12-07 19:41] VITALS: BP 133/84
[2016-12-08 00:57] VITALS: BP 133/77
[2016-12-08 04:41] VITALS: BP 131/70
[2016-12-08 05:59] LABS: ANION GAP 9 MEQ/L (2-14); CHLORIDE 100 MEQ/L (99-109); GFR ESTIMATE (CALCULATED) > 59 mL/min/; GLUCOSE 112 mg/dL (70-99); MAGNESIUM 1.5 mg/dl (1.3-2.7); POTASSIUM 3.1 MEQ/L (3.7-5.4); SAMPLE HEMOLYSIS CHECK 0; SAMPLE ICTERIC CHECK 0; SAMPLE LIPEMIA CHECK 0; SODIUM 138 MEQ/L (136-147); UREA NITROGEN (BUN) 12 mg/dL (9-23)
[2016-12-08 07:22] VITALS: BP 131/76
[2016-12-08 09:15] LABS: HEMATOCRIT 31.2 % (36.0-46.0); MCH 24.9 PG (29.0-34.0); MCHC 32.1 G/DL (30.0-36.0); MCV 77.8 FL (83-99); RBC DIS.WIDTH-CV 22.8 % (11.8-14.6); RBC DIS.WIDTH-SD 63.5 % (39-53); RED BLOOD COUNT 4.01 M/uL (3.80-5.20); WHITE BLOOD COUNT 14.6 K/uL (4.1-10.2)
[2016-12-08 09:59] LABS: PLAT.SUFFICIENCY DECREASED; PLATELET COUNT 100 K/uL (156-360)
[2016-12-08 12:11] VITALS: BP 129/74
[2016-12-08 15:46] VITALS: BP 135/75
[2016-12-08 19:13] VITALS: BP 138/67
[2016-12-09] VITALS: BP 136/68
[2016-12-09 04:00] VITALS: BP 134/72
[2016-12-09 05:32] LABS: ANION GAP 9 MEQ/L (2-14); CHLORIDE 101 MEQ/L (99-109); GFR ESTIMATE (CALCULATED) > 59 mL/min/; GLUCOSE 104 mg/dL (70-99); MAGNESIUM 1.6 mg/dl (1.3-2.7); POTASSIUM 3.2 MEQ/L (3.7-5.4); SAMPLE HEMOLYSIS CHECK 0; SAMPLE ICTERIC CHECK 0; SAMPLE LIPEMIA CHECK 0; SODIUM 137 MEQ/L (136-147); UREA NITROGEN (BUN) 13 mg/dL (9-23)
[2016-12-09 08:56] LABS: DIRECT BILIRUBIN 0.2 mg/dL (0.0-0.3); TOTAL BILIRUBIN 0.7 MG/DL (0.0-1.0)
[2016-12-09 09:02] LABS: ALKALINE PHOSPHATASE 116 IU/L (3-129)
[2016-12-09 09:08] LABS: HEMATOCRIT 31.8 % (36.0-46.0); MCH 24.3 PG (29.0-34.0); MCHC 31.4 G/DL (30.0-36.0); MCV 77.2 FL (83-99); RBC DIS.WIDTH-CV 22.6 % (11.8-14.6); RBC DIS.WIDTH-SD 62.7 % (39-53); RED BLOOD COUNT 4.12 M/uL (3.80-5.20); WHITE BLOOD COUNT 12.1 K/uL (4.1-10.2)
[2016-12-09 10:49] LABS: ABS NEUTROPHIL COUNT 9.7; EOSINOPHIL ABS CT 0.2; INSTRUMENT ABS NEUTROPHIL CT 8.9 K/uL; PLAT.SUFFICIENCY DECREASED; PLATELET COUNT 119 K/uL (156-360)
[2016-12-09 12:54] VITALS: BP 122/78
[2016-12-09 13:59] VITALS: BP 119/67
[2016-12-09 19:58] VITALS: BP 129/77
[2016-12-10] VITALS (7 sets, daily range): BP systolic 120–134; BP diastolic 61–74
[2016-12-10 09:22] LABS: ALKALINE PHOSPHATASE 117 IU/L (3-129); ANION GAP 10 MEQ/L (2-14); CHLORIDE 103 MEQ/L (99-109); GFR ESTIMATE (CALCULATED) > 59 mL/min/; GLUCOSE 107 mg/dL (70-99); MAGNESIUM 1.6 mg/dl (1.3-2.7); POTASSIUM 3.4 MEQ/L (3.7-5.4); SAMPLE HEMOLYSIS CHECK 0; SAMPLE ICTERIC CHECK 0; SAMPLE LIPEMIA CHECK 0; SODIUM 137 MEQ/L (136-147); TOTAL BILIRUBIN 0.7 MG/DL (0.0-1.0); UREA NITROGEN (BUN) 9 mg/dL (9-23)
[2016-12-10 11:15] LABS: EOSINOPHIL COUNT 0.1 K/uL (0-0.3); HEMATOCRIT 33.6 % (36.0-46.0); IMMATURE GRANULOCYTE (%) 4.2 % (0.0-0.7); IMMATURE GRANULOCYTE COUNT 0.5 K/uL; INSTRUMENT ABS NEUTROPHIL CT 8.6 K/uL; LYMPHOCYTE COUNT 1.4 K/uL (1.0-2.8); MCH 25.1 PG (29.0-34.0); MCHC 32.4 G/DL (30.0-36.0); MCV 77.4 FL (83-99); MONOCYTE (%) 6.5 % (3-12); MONOCYTE COUNT 0.7 K/uL (0-0.8); NEUTROPHIL COUNT 8.6 K/uL (1.8-6.4); RBC DIS.WIDTH-SD 63.4 % (39-53); RED BLOOD COUNT 4.34 M/uL (3.80-5.20); WHITE BLOOD COUNT 11.3 K/uL (4.1-10.2)
[2016-12-10 11:37] LABS: HEMATOLOGY COMMENT 1 SMEAR COMPATIBLE; PLAT.SUFFICIENCY ADEQUATE; PLATELET COUNT 148 K/uL (156-360)
[2016-12-11 04:07] VITALS: BP 117/55
[2016-12-11 07:10] LABS: ALKALINE PHOSPHATASE 118 IU/L (3-129); ANION GAP 9 MEQ/L (2-14); CHLORIDE 106 MEQ/L (99-109); GFR ESTIMATE (CALCULATED) > 59 mL/min/; GLUCOSE 105 mg/dL (70-99); MAGNESIUM 1.6 mg/dl (1.3-2.7); POTASSIUM 3.1 MEQ/L (3.7-5.4); SAMPLE HEMOLYSIS CHECK 0; SAMPLE ICTERIC CHECK 0; SAMPLE LIPEMIA CHECK 0; SODIUM 141 MEQ/L (136-147); UREA NITROGEN (BUN) 8 mg/dL (9-23)
[2016-12-11 07:11] LABS: TOTAL BILIRUBIN 0.5 MG/DL (0.0-1.0)
[2016-12-11 08:12] VITALS: BP 135/65
[2016-12-11 08:18] LABS: EOSINOPHIL (%) 1.3 % (0-5); EOSINOPHIL COUNT 0.1 K/uL (0-0.3); HEMATOCRIT 30.3 % (36.0-46.0); IMMATURE GRANULOCYTE (%) 4.7 % (0.0-0.7); IMMATURE GRANULOCYTE COUNT 0.5 K/uL; INSTRUMENT ABS NEUTROPHIL CT 7.1 K/uL; LYMPHOCYTE COUNT 1.4 K/uL (1.0-2.8); MCH 24.4 PG (29.0-34.0); MCHC 31.4 G/DL (30.0-36.0); MCV 77.7 FL (83-99); MONOCYTE (%) 7.3 % (3-12); MONOCYTE COUNT 0.7 K/uL (0-0.8); NEUTROPHIL (%) 72.6 % (45-76); NEUTROPHIL COUNT 7.1 K/uL (1.8-6.4); PLATELET COUNT 127 K/uL (156-360); RBC DIS.WIDTH-CV 22.6 % (11.8-14.6); RBC DIS.WIDTH-SD 63.3 % (39-53); WHITE BLOOD COUNT 9.7 K/uL (4.1-10.2)
[2016-12-11] MEDS ORDERED: METAMUCIL FIBE3.4 GM PO (10:47)
[2016-12-11] MEDS ORDERED: OXYCODONE H5 MG/5 ML PO (10:49)
[2016-12-11 11:55] VITALS: BP 130/74
[2016-12-11 16:40] VITALS: BP 143/81
[2016-12-11 23:57] VITALS: BP 121/58
[2016-12-12 06:43] LABS: EOSINOPHIL (%) 1.1 % (0-5); EOSINOPHIL COUNT 0.1 K/uL (0-0.3); HEMATOCRIT 30.2 % (36.0-46.0); IMMATURE GRANULOCYTE (%) 4.5 % (0.0-0.7); IMMATURE GRANULOCYTE COUNT 0.4 K/uL; LYMPHOCYTE COUNT 1.3 K/uL (1.0-2.8); MCH 24.1 PG (29.0-34.0); MCHC 30.8 G/DL (30.0-36.0); MCV 78.2 FL (83-99); MONOCYTE (%) 5.8 % (3-12); MONOCYTE COUNT 0.6 K/uL (0-0.8); NEUTROPHIL (%) 74.4 % (45-76); RBC DIS.WIDTH-CV 22.5 % (11.8-14.6); RBC DIS.WIDTH-SD 63.4 % (39-53); RED BLOOD COUNT 3.86 M/uL (3.80-5.20); WHITE BLOOD COUNT 9.4 K/uL (4.1-10.2)
[2016-12-12 06:55] LABS: ALKALINE PHOSPHATASE 104 IU/L (3-129); ANION GAP 9 MEQ/L (2-14); CHLORIDE 107 MEQ/L (99-109); GFR ESTIMATE (CALCULATED) > 59 mL/min/; GLUCOSE 93 mg/dL (70-99); MAGNESIUM 1.6 mg/dl (1.3-2.7); POTASSIUM 3.1 MEQ/L (3.7-5.4); SAMPLE HEMOLYSIS CHECK 0; SAMPLE ICTERIC CHECK 0; SAMPLE LIPEMIA CHECK 0; SODIUM 141 MEQ/L (136-147); TOTAL BILIRUBIN 0.5 MG/DL (0.0-1.0); UREA NITROGEN (BUN) 6 mg/dL (9-23)
[2016-12-12 07:08] LABS: PLATELET COUNT 166 K/uL (156-360)
[2016-12-12 07:40] VITALS: BP 125/63
== END 2016-12-12 14:00 | DRG 330 ==
LOC: EME 10:06 → 4WEST 21:21 → 5EAST 21:21 → 2EAST 21:21 → 4EAST 21:21 → EDOF 21:21 → 5EAST 22:42 → 4WEST 12-02 17:24 → 4EAST 12-04 06:41 → ENRESERV 12-09 10:03 → 2EAST 12-09 13:59
PROVIDERS: Emergency Medicine; Internal Medicine Pulmonary Disease; Physician Assistant Surgical; Surgery
DX: C18.7 Malignant neoplasm of sigmoid colon (principal); K56.60 Unspecified intestinal obstruction; E66.01 Morbid (severe) obesity due to excess calories; Z68.41 Body mass index [BMI] 40.0-44.9, adult; K56.7 Ileus, unspecified; L02.211 Cutaneous abscess of abdominal wall; K57.32 Diverticulitis of large intestine without perforation or abscess without bleeding; I10 Essential (primary) hypertension; E11.9 Type 2 diabetes mellitus without complications; E87.6 Hypokalemia; K52.9 Noninfective gastroenteritis and colitis, unspecified; J45.909 Unspecified asthma, uncomplicated; D50.9 Iron deficiency anemia, unspecified; Z85.038 Personal history of other malignant neoplasm of large intestine
CPT/HCPCS: 71020; 74020; 74177; 76937; 80048; 80048 91; 80053; 80076; 80202; 81003; 82948; 83605; 83690; 83735; 84100; 85025; 85027; 85610; 85730; 86900; 86901; 86920; 87040; 87641; 88307; 88309; 94002; 94799; 97530 GP; 99281; 99285; J0131; J0330; J0610; J1100; J1170; J1644; J1940; J2185; J2270; J2405; J2710; J3010; J3370; J3475; J3480; J7030; J7050; J7120; P9016; P9045; S0028

== ENCOUNTER 2017-01-22 06:30 | Day surgery (SDC) | payer OTHER ==
[~2017-01-22] VITALS: Ht 157.5 cm; Wt 108.5 kg
[~2017-01-22 06:30] MED LIST changes: +ASCORBIC ACID500 M1 PO; +KLOR-CON M2020 MEQ PO; +METAMUCIL FIBE3.4 GM PO; +ORAZINC220 MG PO; +PROMETHAZINE HC25 M1 PO
[2017-01-22 07:53] VITALS: BP 133/82
[2017-01-22 08:42] LABS: METH RESISTANT S AUREUS PCR POSITIVE (NEGATIVE); PROBE CHECK PASS
[2017-01-22] MEDS ORDERED: NORCO 5/3251 TABLET PO (10:15)
[2017-01-22 11:49] VITALS: BP 140/80
[2017-01-22 12:36] VITALS: BP 130/70
== END 2017-01-22 13:15 | disposition designated cancer center or children's hospital (05) ==
LOC: SDC 06:30
PROVIDERS: Surgery
DX: Z45.2 Encounter for adjustment and management of vascular access device (principal); I87.8 Other specified disorders of veins; C18.7 Malignant neoplasm of sigmoid colon; I10 Essential (primary) hypertension; J45.909 Unspecified asthma, uncomplicated; E66.01 Morbid (severe) obesity due to excess calories; Z68.41 Body mass index [BMI] 40.0-44.9, adult
CPT/HCPCS: 71010; 87641; C1751; J0690; J2250; J3010

== ENCOUNTER → 2017-01-23 | Outpatient (CLI) | payer OTHER ==
[~2017-01-23] MED LIST changes: +NORCO 5/3251 TABLET PO
== END | disposition home or self-care (01) ==
LOC: RAD 08:30
DX: D25.9 Leiomyoma of uterus, unspecified (principal); Q61.01 Congenital single renal cyst; K80.20 Calculus of gallbladder without cholecystitis without obstruction; R19.8 Other specified symptoms and signs involving the digestive system and abdomen; Z93.2 Ileostomy status; Z90.49 Acquired absence of other specified parts of digestive tract
CPT/HCPCS: 71260; 74177

== ENCOUNTER 2017-04-13 14:53 | Inpatient (IN) | payer OTHER ==
[~2017-04-13] VITALS: Ht 157.5 cm; Wt 88.1 kg
[~2017-04-13 14:53] MED LIST changes: +K-DUR20 MEQ PO
[2017-04-13 15:33] LABS: HEMATOCRIT 43.3 % (36.0-46.0); MCH 22.4 PG (29.0-34.0); MCHC 30.7 G/DL (30.0-36.0); MCV 72.9 FL (83-99); RBC DIS.WIDTH-CV 24.2 % (11.8-14.6); RBC DIS.WIDTH-SD 59.5 % (39-53); RED BLOOD COUNT 5.94 M/uL (3.80-5.20); WHITE BLOOD COUNT 11.2 K/uL (4.1-10.2)
[2017-04-13 15:36] LABS: CHLORIDE 101 mEq/L (99-109); POTASSIUM 4.9 mEq/L (3.7-5.4); SODIUM 134 mEq/L (136-147)
[2017-04-13 15:37] LABS: MAGNESIUM 2.2 mg/dL (1.3-2.7)
[2017-04-13 15:38] LABS: GLUCOSE 174 mg/dL (70-99)
[2017-04-13 15:39] LABS: ANION GAP 14 MEQ/L (2-14)
[2017-04-13 15:40] LABS: TOTAL BILIRUBIN 0.9 mg/dL (0.0-1.0)
[2017-04-13 15:42] LABS: ALKALINE PHOSPHATASE 123 IU/L (3-129); GFR ESTIMATE (CALCULATED) 34 mL/min/
[2017-04-13 15:43] LABS: UREA NITROGEN (BUN) 28 mg/dL (9-23)
[2017-04-13 15:45] LABS: LIPASE 36 U/L (1.0-51.0)
[2017-04-13 15:47] LABS: TROP-I INTERPRETATION NEGATIVE; TROPONIN-I 0.01 ng/mL (0.0-0.30)
[2017-04-13 16:25] LABS: PLAT.SUFFICIENCY DECREASED; PLATELET COUNT 107 K/uL (156-360)
[2017-04-13 17:46] LABS: C DIFF TOXIN NEGATIVE (NEGATIVE)
[2017-04-13 17:53] LABS: PROBE CHECK PASS; SPECIMEN PROCESSING CONTROL PASS
[2017-04-13 20:05] VITALS: BP 133/88
[2017-04-13] MEDS ORDERED: COMPAZINE10 MG PO (21:22)
[2017-04-13 23:58] VITALS: BP 155/80
[2017-04-14 03:45] VITALS: BP 134/83
[2017-04-14 05:54] LABS: HEMATOCRIT 37.1 % (36.0-46.0); MCH 22.9 PG (29.0-34.0); MCHC 31.3 G/DL (30.0-36.0); MCV 73.2 FL (83-99); RBC DIS.WIDTH-CV 24.4 % (11.8-14.6); RBC DIS.WIDTH-SD 59.7 % (39-53); RED BLOOD COUNT 5.07 M/uL (3.80-5.20); WHITE BLOOD COUNT 8.7 K/uL (4.1-10.2)
[2017-04-14 06:04] LABS: ANION GAP 11 MEQ/L (2-14); CHLORIDE 106 MEQ/L (99-109); GFR ESTIMATE (CALCULATED) > 59 mL/min/; GLUCOSE 134 mg/dL (70-99); POTASSIUM 4.1 MEQ/L (3.7-5.4); SAMPLE HEMOLYSIS CHECK 0; SAMPLE ICTERIC CHECK 0; SAMPLE LIPEMIA CHECK 0; SODIUM 138 MEQ/L (136-147); UREA NITROGEN (BUN) 21 mg/dL (9-23)
[2017-04-14 06:12] LABS: PLAT.SUFFICIENCY DECREASED; PLATELET COUNT 78 K/uL (156-360)
[2017-04-14 07:23] VITALS: BP 168/88
[2017-04-14 11:42] VITALS: BP 168/87
[2017-04-14 12:11] LABS: METH RESISTANT S AUREUS PCR POSITIVE (NEGATIVE)
[2017-04-14 12:12] LABS: PROBE CHECK PASS
[2017-04-14 15:22] VITALS: BP 143/85
[2017-04-14 20:32] VITALS: BP 172/80
[2017-04-15 00:51] VITALS: BP 145/95
[2017-04-15 04:29] VITALS: BP 143/87
[2017-04-15 07:30] VITALS: BP 132/82
[2017-04-15] MEDS ORDERED: METAMUCIL FIBE3.4 GM PO (10:56)
[2017-04-15] MEDS ORDERED: LOPERAMIDE2 M1 PO (10:57)
[2017-04-15 20:00] VITALS: BP 157/90
[2017-04-15 23:58] VITALS: BP 137/99
[2017-04-16 05:42] LABS: HEMATOCRIT 40.1 % (36.0-46.0); MCH 22.2 PG (29.0-34.0); MCHC 31.2 G/DL (30.0-36.0); MCV 71.4 FL (83-99); NRBC (%) 0.2 /100 WBC (0-0); RBC DIS.WIDTH-CV 24.8 % (11.8-14.6); RBC DIS.WIDTH-SD 59.5 % (39-53); RED BLOOD COUNT 5.62 M/uL (3.80-5.20); WHITE BLOOD COUNT 9.1 K/uL (4.1-10.2)
[2017-04-16 06:14] LABS: ANION GAP 15 MEQ/L (2-14); GLUCOSE 133 mg/dL (70-99); MAGNESIUM 2.3 mg/dl (1.3-2.7); POTASSIUM 3.5 MEQ/L (3.7-5.4); SAMPLE HEMOLYSIS CHECK 0; SAMPLE ICTERIC CHECK 0; SAMPLE LIPEMIA CHECK 0
[2017-04-16 06:15] LABS: CHLORIDE 94 MEQ/L (99-109); GFR ESTIMATE (CALCULATED) 40 mL/min/; SODIUM 127 MEQ/L (136-147); UREA NITROGEN (BUN) 33 mg/dL (9-23)
[2017-04-16 06:50] LABS: PLATELET COUNT 137 K/uL (156-360)
[2017-04-16 10:54] VITALS: BP 132/65
[2017-04-16 16:53] VITALS: BP 141/74
[2017-04-16 19:00] VITALS: BP 129/88
[2017-04-16 23:01] VITALS: BP 153/86
[2017-04-17 06:30] LABS: HEMATOCRIT 41.1 % (36.0-46.0); MCH 22.3 PG (29.0-34.0); MCHC 31.1 G/DL (30.0-36.0); MCV 71.7 FL (83-99); NRBC (%) 0.4 /100 WBC (0-0); PLATELET COUNT 121 K/uL (156-360); RBC DIS.WIDTH-CV 24.9 % (11.8-14.6); RED BLOOD COUNT 5.73 M/uL (3.80-5.20); WHITE BLOOD COUNT 10.2 K/uL (4.1-10.2)
[2017-04-17 06:58] LABS: ALKALINE PHOSPHATASE 143 IU/L (3-129); ANION GAP 14 MEQ/L (2-14); CHLORIDE 101 MEQ/L (99-109); GFR ESTIMATE (CALCULATED) 53 mL/min/; GLUCOSE 122 mg/dL (70-99); SAMPLE HEMOLYSIS CHECK 0; SAMPLE ICTERIC CHECK 0; SAMPLE LIPEMIA CHECK 0; SODIUM 128 MEQ/L (136-147); TOTAL BILIRUBIN 0.9 MG/DL (0.0-1.0); UREA NITROGEN (BUN) 36 mg/dL (9-23)
[2017-04-17 07:02] LABS: POTASSIUM 5.1 MEQ/L (3.7-5.4)
[2017-04-17 09:00] VITALS: BP 126/83
[2017-04-17 12:56] VITALS: BP 126/78
[2017-04-17 16:27] VITALS: BP 132/81
[2017-04-17 16:51] LABS: ANION GAP 9 MEQ/L (2-14); CHLORIDE 98 MEQ/L (99-109); SAMPLE HEMOLYSIS CHECK 0; SAMPLE ICTERIC CHECK 0; SAMPLE LIPEMIA CHECK 0; SODIUM 127 MEQ/L (136-147)
[2017-04-17 16:56] LABS: GFR ESTIMATE (CALCULATED) 59 mL/min/; GLUCOSE 136 mg/dL (70-99); UREA NITROGEN (BUN) 32 mg/dL (9-23)
[2017-04-17 17:15] LABS: POTASSIUM 3.8 MEQ/L (3.7-5.4)
[2017-04-17 21:24] VITALS: BP 121/84
[2017-04-18 01:00] VITALS: BP 122/65
[2017-04-18 03:50] VITALS: BP 129/74
[2017-04-18 05:56] LABS: ANION GAP 12 MEQ/L (2-14); CHLORIDE 98 MEQ/L (99-109); GFR ESTIMATE (CALCULATED) > 59 mL/min/; GLUCOSE 138 mg/dL (70-99); POTASSIUM 3.3 MEQ/L (3.7-5.4); SAMPLE HEMOLYSIS CHECK 0; SAMPLE ICTERIC CHECK 0; SAMPLE LIPEMIA CHECK 0; SODIUM 129 MEQ/L (136-147); UREA NITROGEN (BUN) 25 mg/dL (9-23)
[2017-04-18 10:10] VITALS: BP 122/78
[2017-04-18 11:51] VITALS: BP 126/78
[2017-04-18 13:54] LABS: ALKALINE PHOSPHATASE 134 IU/L (3-129); ANION GAP 10 MEQ/L (2-14); CHLORIDE 96 MEQ/L (99-109); GFR ESTIMATE (CALCULATED) > 59 mL/min/; GLUCOSE 128 mg/dL (70-99); POTASSIUM 3.3 MEQ/L (3.7-5.4); SAMPLE HEMOLYSIS CHECK 0; SAMPLE ICTERIC CHECK 0; SAMPLE LIPEMIA CHECK 0; SODIUM 130 MEQ/L (136-147); TOTAL BILIRUBIN 0.8 MG/DL (0.0-1.0); UREA NITROGEN (BUN) 23 mg/dL (9-23)
[2017-04-18 16:00] VITALS: BP 113/80
[2017-04-18 20:50] VITALS: BP 124/86
[2017-04-19 00:11] VITALS: BP 117/81
[2017-04-19 04:49] VITALS: BP 98/60
[2017-04-19 09:07] LABS: HEMATOCRIT 40.1 % (36.0-46.0); MCH 22.3 PG (29.0-34.0); MCHC 30.7 G/DL (30.0-36.0); MCV 72.8 FL (83-99); NRBC (%) 0.3 /100 WBC (0-0); PLATELET COUNT 152 K/uL (156-360); RBC DIS.WIDTH-CV 25.4 % (11.8-14.6); RBC DIS.WIDTH-SD 62.1 % (39-53); RED BLOOD COUNT 5.51 M/uL (3.80-5.20)
[2017-04-19 09:35] LABS: ALKALINE PHOSPHATASE 138 IU/L (3-129); ANION GAP 12 MEQ/L (2-14); CHLORIDE 97 MEQ/L (99-109); GFR ESTIMATE (CALCULATED) 53 mL/min/; GLUCOSE 122 mg/dL (70-99); MAGNESIUM 2.3 mg/dl (1.3-2.7); POTASSIUM 3.6 MEQ/L (3.7-5.4); SAMPLE HEMOLYSIS CHECK 0; SAMPLE ICTERIC CHECK 0; SAMPLE LIPEMIA CHECK 0; SODIUM 129 MEQ/L (136-147); TOTAL BILIRUBIN 0.8 MG/DL (0.0-1.0); UREA NITROGEN (BUN) 23 mg/dL (9-23)
[2017-04-19 11:25] VITALS: BP 112/76
[2017-04-19 16:40] VITALS: BP 101/66
[2017-04-19 23:15] VITALS: BP 120/81
[2017-04-20 05:02] VITALS: BP 119/83
[2017-04-20 06:28] LABS: HEMATOCRIT 43.2 % (36.0-46.0); MCH 22.9 PG (29.0-34.0); MCV 73.8 FL (83-99); NRBC (%) 0.3 /100 WBC (0-0); RBC DIS.WIDTH-CV 26.2 % (11.8-14.6); RBC DIS.WIDTH-SD 64.6 % (39-53); RED BLOOD COUNT 5.85 M/uL (3.80-5.20); WHITE BLOOD COUNT 11.1 K/uL (4.1-10.2)
[2017-04-20 06:31] LABS: PLATELET COUNT 237 K/uL (156-360)
[2017-04-20 06:43] LABS: ANION GAP 13 MEQ/L (2-14); CHLORIDE 102 MEQ/L (99-109); GFR ESTIMATE (CALCULATED) 48 mL/min/; GLUCOSE 143 mg/dL (70-99); POTASSIUM 4.2 MEQ/L (3.7-5.4); SAMPLE HEMOLYSIS CHECK 0; SAMPLE ICTERIC CHECK 0; SAMPLE LIPEMIA CHECK 0; SODIUM 131 MEQ/L (136-147); UREA NITROGEN (BUN) 27 mg/dL (9-23)
[2017-04-20 08:11] VITALS: BP 110/60
[2017-04-20 12:06] VITALS: BP 115/78
[2017-04-20 16:30] VITALS: BP 102/68
[2017-04-20 20:09] VITALS: BP 120/80
[2017-04-20 23:48] VITALS: BP 125/74
[2017-04-21 04:15] VITALS: BP 132/75
[2017-04-21 05:53] LABS: ANION GAP 9 MEQ/L (2-14); CHLORIDE 106 MEQ/L (99-109); GFR ESTIMATE (CALCULATED) 53 mL/min/; GLUCOSE 115 mg/dL (70-99); POTASSIUM 3.9 MEQ/L (3.7-5.4); SAMPLE HEMOLYSIS CHECK 0; SAMPLE ICTERIC CHECK 0; SAMPLE LIPEMIA CHECK 0; SODIUM 130 MEQ/L (136-147); UREA NITROGEN (BUN) 26 mg/dL (9-23)
[2017-04-21 15:18] VITALS: BP 133/77
[2017-04-21 20:40] VITALS: BP 120/70
[2017-04-21 23:32] VITALS: BP 130/74
[2017-04-22 03:54] VITALS: BP 121/75
[2017-04-22 06:17] LABS: ANION GAP 8 MEQ/L (2-14); CHLORIDE 111 MEQ/L (99-109); GFR ESTIMATE (CALCULATED) > 59 mL/min/; GLUCOSE 116 mg/dL (70-99); MAGNESIUM 1.9 mg/dl (1.3-2.7); POTASSIUM 3.7 MEQ/L (3.7-5.4); SAMPLE HEMOLYSIS CHECK 0; SAMPLE ICTERIC CHECK 0; SAMPLE LIPEMIA CHECK 0; SODIUM 131 MEQ/L (136-147); UREA NITROGEN (BUN) 16 mg/dL (9-23)
[2017-04-22 12:00] VITALS: BP 144/72
[2017-04-22 17:20] VITALS: BP 115/69
[2017-04-23 00:06] VITALS: BP 119/68
[2017-04-23 06:12] LABS: ANION GAP 9 MEQ/L (2-14); CHLORIDE 111 MEQ/L (99-109); GFR ESTIMATE (CALCULATED) > 59 mL/min/; GLUCOSE 98 mg/dL (70-99); POTASSIUM 3.7 MEQ/L (3.7-5.4); SAMPLE HEMOLYSIS CHECK 0; SAMPLE ICTERIC CHECK 0; SAMPLE LIPEMIA CHECK 0; SODIUM 136 MEQ/L (136-147); UREA NITROGEN (BUN) 12 mg/dL (9-23)
[2017-04-23 07:53] VITALS: BP 130/74
[2017-04-23 16:03] VITALS: BP 140/74
[2017-04-23 20:26] VITALS: BP 126/64
[2017-04-23 23:56] VITALS: BP 120/74
[2017-04-24 06:27] LABS: ANION GAP 10 MEQ/L (2-14); CHLORIDE 110 MEQ/L (99-109); POTASSIUM 3.3 MEQ/L (3.7-5.4); SAMPLE HEMOLYSIS CHECK 0; SAMPLE ICTERIC CHECK 0; SAMPLE LIPEMIA CHECK 0; SODIUM 137 MEQ/L (136-147)
[2017-04-24 06:33] LABS: GFR ESTIMATE (CALCULATED) > 59 mL/min/; GLUCOSE 89 mg/dL (70-99); UREA NITROGEN (BUN) 8 mg/dL (9-23)
[2017-04-24 08:54] VITALS: BP 138/68
[2017-04-24 12:09] VITALS: BP 110/57
[2017-04-24 17:24] VITALS: BP 129/73
[2017-04-24 17:35] VITALS: BP 118/64
[2017-04-24 18:55] VITALS: BP 116/72
[2017-04-25 00:40] VITALS: BP 134/71
[2017-04-25 06:06] LABS: ANION GAP 8 MEQ/L (2-14); CHLORIDE 109 MEQ/L (99-109); GFR ESTIMATE (CALCULATED) > 59 mL/min/; GLUCOSE 99 mg/dL (70-99); MAGNESIUM 1.4 mg/dl (1.3-2.7); POTASSIUM 3.4 MEQ/L (3.7-5.4); SAMPLE HEMOLYSIS CHECK 0; SAMPLE ICTERIC CHECK 0; SAMPLE LIPEMIA CHECK 0; SODIUM 137 MEQ/L (136-147); UREA NITROGEN (BUN) 7 mg/dL (9-23)
[2017-04-25 12:45] VITALS: BP 121/67
[2017-04-25 17:37] VITALS: BP 127/77
[2017-04-25 20:00] VITALS: BP 108/62
[2017-04-25 23:33] VITALS: BP 115/62
[2017-04-26 05:46] LABS: ANION GAP 7 MEQ/L (2-14); CHLORIDE 109 MEQ/L (99-109); GFR ESTIMATE (CALCULATED) > 59 mL/min/; GLUCOSE 96 mg/dL (70-99); POTASSIUM 3.8 MEQ/L (3.7-5.4); SAMPLE HEMOLYSIS CHECK 0; SAMPLE ICTERIC CHECK 0; SAMPLE LIPEMIA CHECK 0; SODIUM 138 MEQ/L (136-147); UREA NITROGEN (BUN) 7 mg/dL (9-23)
[2017-04-26 09:19] VITALS: BP 140/70
[2017-04-26] MEDS ORDERED: K-DUR20 MEQ PO (12:09)
[2017-04-26] MEDS ORDERED: LOPERAMIDE2 MG PO (12:09)
[2017-04-26] MEDS ORDERED: HYDROCODON-ACE1 EAC7 PO (12:09)
[2017-04-26] MEDS ORDERED: METAMUCIL PACK3.4 GM PO (12:09)
[2017-04-26 12:48] VITALS: BP 132/86
== END 2017-04-26 14:31 | DRG 392 ==
LOC: EME 14:53 → EDOF 17:15 → ENRESERV 17:27 → 5WEST 19:59 → ENRESERV 04-14 15:54 → CANRESERV 04-14 15:54 → 5WEST 04-14 15:54 → ENPENDDIS 04-15 11:08 → 5WEST 04-26 14:31
PROVIDERS: Family Medicine; Internal Medicine; Nurse Practitioner Adult Health; Physician Assistant; Physician Assistant Medical
DX: R19.7 Diarrhea, unspecified (principal); T45.1X5A Adverse effect of antineoplastic and immunosuppressive drugs, initial encounter; N17.9 Acute kidney failure, unspecified; C18.7 Malignant neoplasm of sigmoid colon; E83.39 Other disorders of phosphorus metabolism; E83.41 Hypermagnesemia; E86.0 Dehydration; E86.1 Hypovolemia; E87.1 Hypo-osmolality and hyponatremia; E87.2 Acidosis; E87.6 Hypokalemia; I10 Essential (primary) hypertension; J45.909 Unspecified asthma, uncomplicated; E66.9 Obesity, unspecified; Z68.35 Body mass index [BMI] 35.0-35.9, adult; Z90.49 Acquired absence of other specified parts of digestive tract; Z93.2 Ileostomy status; Z88.1 Allergy status to other antibiotic agents; Z88.5 Allergy status to narcotic agent; Z91.19 Patient's noncompliance with other medical treatment and regimen
CPT/HCPCS: 71010; 80048; 80048 91; 80053; 81003; 83690; 83735; 84100; 84484; 85027; 87040; 87177; 87493; 87506; 87641; 93005; 97530 GO; 97530 GP; 99281; 99285; G0378; G8978 GP CM; G8979 GP CI; G8987 GO CJ; G8988 CI; J1650; J2354; J2997; J3475; J3480; J7030; S0030

== ENCOUNTER 2017-07-05 07:52 | Day surgery (SDC) | payer OTHER ==
[~2017-07-05] VITALS: Ht 157.5 cm; Wt 81.0 kg
[~2017-07-05 07:52] MED LIST changes: +COMPAZINE10 MG PO; +HYDROCODON-ACE1 EAC7 PO; +IMODIUM A-D2 M2 PO; +LOPERAMIDE2 M1 PO; +LOPERAMIDE2 MG PO; +METAMUCIL PACK3.4 GM PO
== END 2017-07-05 10:31 | disposition home or self-care (01) ==
LOC: CATH 07:52
DX: T82.514A Breakdown (mechanical) of infusion catheter, initial encounter (principal); I87.8 Other specified disorders of veins; C18.9 Malignant neoplasm of colon, unspecified; I10 Essential (primary) hypertension
CPT/HCPCS: C1751; C1894; J0690; J1644; J2250; J3010; S0020

== ENCOUNTER 2017-07-31 10:30 | Emergency (ER) | payer OTHER ==
[~2017-07-31] VITALS: Ht 157.5 cm; Wt 78.1 kg
[2017-07-31 11:02] LABS: HEMATOCRIT 28.2 % (36.0-46.0); HEMOGLOBIN 8.8 G/DL (11.9-15.5); MCH 24.3 PG (29.0-34.0); MCHC 31.2 G/DL (30.0-36.0); MCV 77.9 FL (83-99); RBC DIS.WIDTH-CV 18.4 % (11.8-14.6); RBC DIS.WIDTH-SD 51.5 % (39-53); RED BLOOD COUNT 3.62 M/uL (3.80-5.20)
[2017-07-31 11:03] LABS: CHLORIDE 100 mEq/L (99-109); POTASSIUM 3.8 mEq/L (3.7-5.4); SODIUM 131 mEq/L (136-147)
[2017-07-31 11:05] LABS: GLUCOSE 109 mg/dL (70-99)
[2017-07-31 11:09] LABS: CREATININE 0.9 mg/dL (0.6-1.3); GFR ESTIMATE (CALCULATED) > 59 mL/min/
[2017-07-31 11:10] LABS: UREA NITROGEN (BUN) 13 mg/dL (9-23)
[2017-07-31] MEDS ORDERED: TOBREX5 ML LEFT EYE (12:00)
[2017-07-31 12:11] LABS: ABS NEUTROPHIL COUNT 0.5; ANISOCYTOSIS 2+; ATYPICAL LYMPHOCYTE 4.4 %; EOSINOPHIL ABS CT 0; EOSINOPHILS 1.8 % (0-5.0); LYMPHOCYTES 51.8 % (15.0-45.0); MICROCYTOSIS 2+; MONOCYTES 3.5 % (0-9.0); NUCLEATED RBC'S 0.9; OVALOCYTES 1+; PLAT.SUFFICIENCY DECREASED; PLATELET CLUMPS PRESENT - PLATELET COUNTS APPEARS DECREASED; POIKILOCYTOSIS 1+; TEAR DROP CELLS 1+
[2017-07-31 12:51] LABS: PLATELET COUNT UNABLE TO REPORT K/uL (156-360); SEG.NEUTROPHILS 17.5 % (46.0-76.0); WHITE BLOOD COUNT 1.4 K/uL (4.1-10.2)
[2017-07-31 13:50] VITALS: BP 139/79
== END 2017-07-31 14:18 | disposition home or self-care (01) ==
LOC: EME 10:30
PROVIDERS: Emergency Medicine
DX: H10.32 Unspecified acute conjunctivitis, left eye (principal); E86.0 Dehydration; J45.909 Unspecified asthma, uncomplicated; Z85.038 Personal history of other malignant neoplasm of large intestine; Z92.21 Personal history of antineoplastic chemotherapy; Z87.19 Personal history of other diseases of the digestive system; Z98.890 Other specified postprocedural states; Z93.2 Ileostomy status; Z88.5 Allergy status to narcotic agent; Z88.1 Allergy status to other antibiotic agents
CPT/HCPCS: 80048; 85025; 99281; 99284; J7030

== ENCOUNTER 2017-08-06 16:52 | Emergency (ER) | payer OTHER ==
[~2017-08-06] VITALS: Ht 157.5 cm; Wt 79.2 kg
[~2017-08-06 16:52] MED LIST changes: +TOBREX5 ML LEFT EYE
[2017-08-06 18:41] VITALS: BP 126/71
== END 2017-08-06 18:41 | disposition home or self-care (01) ==
LOC: EME 16:52
DX: R19.7 Diarrhea, unspecified (principal); T45.1X5A Adverse effect of antineoplastic and immunosuppressive drugs, initial encounter; Z43.2 Encounter for attention to ileostomy; C18.9 Malignant neoplasm of colon, unspecified; J45.909 Unspecified asthma, uncomplicated; Z88.5 Allergy status to narcotic agent; Z88.1 Allergy status to other antibiotic agents
CPT/HCPCS: 99281; 99284